=== PATIENT | male | born 1990 | race Caucasian/White ===

== ENCOUNTER → 2018-05-14 11:34 | Outpatient (CLI) | payer OTHER, SELFPAY | DX: Z23 Encounter for immunization (principal) | CPT/HCPCS: 90471; 90686 ==

== ENCOUNTER → 2020-09-15 08:00 | Outpatient (CLI) | payer OTHER, SELFPAY ==
--- NOTE | 2020-09-15 | DI.ECHO.S_ITS ---
[facility] +---------+ : : [address] : [address] : : : : [id number] : : : : Phone: [phone]+ Echocardiogram Report + + :Name: RUDI TAVERA Study Date: 09/15/2020 Height: 72 in : :[facility] ReadingLocation: Weight: 199 lb : : Gender: Male BSA: 2.1 m2 : :: 1990 Age: 30 yrs BP: 127/75 mmHg: :Reason For Study: Syncope and collapse : :Ordering Physician: Chaitanya : :Brittany Performed By: Jeanie Seewll : + + Interpretation Summary 1) Normal left ventricular thickness and size with low normal systolic function (EF 50-55%). 2) Normal right ventricular size and function. 3) No significant valvular abnormalities. 4) No prior Echo available for comparison. Procedure: A two-dimensional transthoracic echocardiogram with color flow and Doppler was performed. The study quality was technically adequate. There is no prior echocardiogram noted for this patient. The patient was in normal sinus rhythm during the exam. Left Ventricle: The left ventricle is normal in size. There is normal left ventricular wall thickness. There is no ventricular septal defect visualized. The ejection fraction is estimated to be 50-55%. Diastolic parameters suggest probable normal left ventricular diastolic function and normal filling pressures. Right Ventricle: The right ventricle is normal in size and function. Atria: Both atria are normal in size. There is no Doppler evidence for an interatrial shunt. Mitral Valve: The mitral valve is normal in structure and function. There is no mitral regurgitation noted. Aortic Valve: The aortic valve is normal in structure and function. There is no aortic valve stenosis. No aortic regurgitation is present. Tricuspid Valve: The tricuspid valve is normal in structure and function. Pulmonary artery pressures cannot be estimated because of the lack of a measurable TR jet velocity but the IVC suggests a CVP of around 3 mmHg. Pulmonic Valve: The pulmonic valve is not well seen, but is grossly normal. Great Vessels: The aortic root is normal size. The ascending aorta is normal in size. The aortic arch is normal in size. The pulmonary artery is not well visualized, but is probably normal size. The IVC is of normal diameter and collapses greater than 50% with a sniff. This suggests a low right atrial pressure of 3 mm Hg. Pericardium/ Pleura There is no pericardial effusion. MMode/2D Measurements & Calculations LVIDd: 5.2 cm LVOT diam: 2.4 cm LVIDs: 3.8 cm Ao root diam: 3.1 cm FS: 27.7 % Aortic Jxn: 2.6 cm EPSS: 0.55 cm asc Aorta Diam: 2.9 cm IVSd: 0.96 cm Ao Arch Diam (Prox Trans): 2.4 cm LVPWd: 0.91 cm LV blount. diameter/BSA (cm/m^2): 2.5 LV sys. diameter/BSA (cm/m^2): 1.8 LA A2 area: 21.1 cm2 RA long axis: 5.4 cm LA A4 area: 20.8 cm2 RA area: 17.0 cm2 LA length (vol): 5.3 cm RA vol: 45.7 ml LA vol: 69.9 ml RA : 21.5 ml/m2 LA vol index: 32.9 ml/m2 IVC diam: 1.3 cm RVD1 (basal): 3.6 cm RVD2 (mid): 3.1 cm TAPSE: 2.2 cm Doppler Measurements & Calculations Ao V2 max: 134.1 cm/sec LVOT Max Kurtis: 77.3 cm/sec Ao V2 mean: 90.6 cm/sec LV V1 max P.4 mmHg Ao max P.2 mmHg LV V1 VTI: 14.0 cm Ao mean P.8 mmHg LES(I,D): 2.5 cm2 Ao V2 VTI: 25.1 cm LES(V,D): 2.6 cm2 sev ratio: 0.56 LES indexed to BSA (cm^2/m^2): 1.2 MV E max kurtis: 47.2 cm/sec PA V2 max: 102.9 cm/sec MV A max kurtis: 38.2 cm/sec PA V2 mean: 70.6 cm/sec MV E/A: 1.2 PA mean P.3 mmHg Med Peak E' Kurtis: 9.7 cm/sec PA Accel Time: 0.16 sec E/E' med: 4.9 Lat Peak E' Kurtis: 13.0 cm/sec E/E' lat: 3.6 E/e' average: 4.3 MV dec time: 0.22 sec MV P1/2t: 64.1 msec MV P1/2t max kurtis: 47.4 cm/sec SV(LVOT): 62.0 ml MVA(P12t): 3.4 cm2 Reading Physician:10:36 AM
== END ==
PROVIDERS: PCP Family Medicine; Referring Provider Family Medicine; Visit Provider Family Medicine
DX: R55 Syncope and collapse (principal)
CPT/HCPCS: 93306